=== PATIENT | female | born 2000 | race Caucasian/White ===

== ENCOUNTER → 2024-10-11 12:46 | Outpatient (REF) | payer OTHER, SELFPAY | LOC: HWRCS 12:46 | PROVIDERS: ATTENDING PHYSICIAN Family Medicine | DX: R01.1 Cardiac murmur, unspecified (principal) | CPT/HCPCS: 93306 ==

== ENCOUNTER → 2025-01-02 11:19 | Outpatient (REF) | payer OTHER, SELFPAY | LOC: HWRAD 11:19 | PROVIDERS: ATTENDING PHYSICIAN Registered Nurse | DX: E01.1 Iodine-deficiency related multinodular (endemic) goiter (principal) | CPT/HCPCS: 76536 ==